=== PATIENT | male | born 2000 | race Two or more races ===

== ENCOUNTER 2018-05-07 15:27 | Emergency (ER) | payer OTHER ==
[~2018-05-07] VITALS: Ht 170.2 cm; Wt 56.7 kg
[2018-05-07] MEDS ORDERED: IV NORMAL SALINE 1000ML BAG 1,000 ML IV SCH (16:24)
[2018-05-07] MEDS ORDERED: IV NORMAL SALINE 500ML BAG 500 ML IV PRN (16:30)
[2018-05-07] MEDS ORDERED: ACETAMINOPHEN 500 MG TABLET PO ONE (16:30)
[2018-05-07 16:43] LABS: BILIRUBIN,URINE NEGATIVE (NEG); CLARITY,URINE CLEAR; COLOR,URINE YELLOW; NITRITE,URINE NEGATIVE (NEG); PH,URINE 5.5; PROTEIN,URINE NEGATIVE (NEG-TRACE)
[2018-05-07 16:58] LABS: BACTERIA,URINE 0 /HPF (0-FEW); RBC,URINE 0 /HPF (0-2); WBC,URINE 0 /HPF (0-4)
[2018-05-07 17:08] LABS: BASO % 0 % (0-3); EOS % 0 % (0-3); HEMATOCRIT 45.8 % (39.0-53.0); HEMOGLOBIN 15.7 g/dL (13.0-17.5); LYMPH # 0.4 x10^3/uL (1.0-4.8); LYMPH % 4 % (24-48); MEAN CORPUSCULAR HEMOGLOBIN 28 pg (25-35); MEAN CORPUSCULAR HGB CONC 34 g/dL (31-37); MEAN CORPUSCULAR VOLUME 81 fL (79-100); MONO # 0.8 x10^3/uL (0.0-1.1); MONO % 8 % (0-9); NEUT # 7.9 x10^3uL (1.8-7.7); NEUT % 87 % (31-73); PLATELET COUNT 200 x10^3/uL (140-400); RED BLOOD COUNT 5.63 x10^6/uL (4.30-5.70); RED CELL DISTRIBUTION WIDTH 13.2 % (11.5-14.5); WHITE BLOOD COUNT 9.1 x10^3/uL (4.0-11.0)
--- NOTE | 2018-05-07 17:11 | RAD ---
CHEST AP ONLY History: PATIENT WOKE UP WITH UPSET STOMACH AND FEVER, history of smoking. Comparison: None. Findings: Single view of the chest is submitted. There is no infiltrate, pneumothorax, or effusion. The pericardial cardiac silhouette is within normal limits in size. Impression: 1. There is no radiographic evidence of acute cardiopulmonary disease. Electronically signed by: Aleksandr De Guzman MD (05/07/2018 5:08 PM) [id number]
[2018-05-07 17:18] LABS: PROTHROMBIN TIME PATIENT 12.9 SEC (11.7-14.0)
[2018-05-07 17:20] LABS: CALCIUM 9.4 mg/dL (8.5-10.1); CREATININE 1.3 mg/dL (0.7-1.3); GFR 70.4; POTASSIUM 3.8 mmol/L (3.5-5.1)
[2018-05-07 17:26] LABS: INFLUENZA A PATIENT NEGATIVE (NEGATIVE); INFLUENZA B PATIENT NEGATIVE (NEGATIVE)
[2018-05-07 17:38] LABS: ALBUMIN 4.4 g/dL (3.4-5.0); ALBUMIN/GLOBULIN RATIO 1.3 (1.0-1.7); TOTAL BILIRUBIN 1.1 mg/dL (0.2-1.0); TOTAL PROTEIN 7.9 g/dL (6.4-8.2)
--- NOTE | 2018-05-07 18:03 | RAD ---
CT scan of the head without contrast 05/07/2018 Clinical History: Generalized pain. Fever. Technique: Unenhanced, contiguous, 5 mm axial sections were obtained through the head. One or more of the following individualized dose reduction techniques were utilized for this study: 1. Automated exposure control. 2. Adjustment of the mA and/or kV according to patient size. 3. Use of iterative reconstruction technique. Findings: The ventricles and sulci are within normal limits in size and configuration. No focal area of abnormal attenuation is seen involving the brain parenchyma. No extra-axial fluid collection is seen. No skull fracture is seen. Impression: Negative study. Electronically signed by: Gorge Zacarias MD (05/07/2018 6:00 PM) [facility]
--- NOTE | 2018-05-07 18:25 | PHYS DOC ---
Past Medical History Past Medical History: No Pertinent History Past Surgical History: Other Additional Past Surgical Histo: RLE fracture Alcohol Use: None Drug Use: None Adult General Chief Complaint Chief Complaint: GENERALIZED BODY ACHES HPI HPI Patient is a 18 year old male who presents with subjective fevers, body aches, nausea, and a slight posterior headache that began this morning at 7 AM. Patient denies any vomiting or diarrhea. Denies this being the worst headache in his life. Denies any neck pain or nuchal rigidity. He states he traveled from [facility] 2 months ago. Denies any coughing or congestion. Review of Systems Review of Systems Constitutional: Reports subjective fevers and body aches Eyes: Denies change in visual acuity, redness, or eye pain [] HENT: Denies nasal congestion or sore throat [] Respiratory: Denies cough or shortness of breath [] Cardiovascular: No additional information not addressed in HPI [] GI: Denies abdominal pain, nausea, vomiting, bloody stools or diarrhea [] : Denies dysuria or hematuria [] Musculoskeletal: Denies back pain or joint pain [] Integument: Denies rash or skin lesions [] Neurologic: Reports slight posterior headache, denies focal weakness or sensory changes [] All other systems were reviewed and found to be within normal limits, except as documented in this note. Current Medications Current Medications Current Medications Medications (Trade) Dose Ordered Sig/Joe Start Time Stop Time Status Last Admin Dose Admin Acetaminophen (Tylenol) 1,000 mg 1X ONCE 05/07/18 16:30 05/07/18 16:32 DC 05/07/18 17:06 1,000 MG Ceftriaxone Sodium 50 ml @ 100 mls/hr 1X ONCE 05/07/18 18:15 05/07/18 18:44 DC 05/07/18 18:43 100 MLS/HR Ibuprofen (Motrin) 800 mg 1X ONCE 05/07/18 18:30 05/07/18 18:31 DC 05/07/18 18:43 800 MG Sodium Chloride 500 ml @ 1,000 mls/hr PRN Q30MIN PRN 05/07/18 16:30 05/07/18 19:34 DC 05/07/18 17:08 1,000 MLS/HR Allergies Allergies Allergies Coded Allergies Type Severity Reaction Last Updated Verified No Known Drug Allergies 05/07/18 No Physical Exam Physical Exam Constitutional: Well developed, well nourished, no acute distress, non-toxic appearance. [] HENT: Normocephalic, atraumatic, bilateral external ears normal, oropharynx moist, no oral exudates, nose normal. [] Eyes: PERRLA, EOMI, conjunctiva normal, no discharge. [] Neck: Normal range of motion, no tenderness, supple, no stridor. No meningeal signs Cardiovascular:Heart rate regular rhythm, no murmur [] Lungs & Thorax: Bilateral breath sounds clear to auscultation [] Abdomen: Bowel sounds normal, soft, no tenderness, no masses, no pulsatile masses. [] Skin: Warm, dry, no erythema, no rash. [] Back: No tenderness, no CVA tenderness. [] Extremities: No tenderness, no cyanosis, no clubbing, ROM intact, no edema. [] Neurologic: Alert and oriented X 3, normal motor function, normal sensory function, no focal deficits noted. Cranial nerves II through XII intact Psychologic: Affect normal, judgement normal, mood normal. [] Current Patient Data Vital Signs Vital Signs Date Time Temp Pulse Resp B/P (MAP) Pulse Ox O2 Delivery O2 Flow Rate FiO2 05/07/18 19:05 96 18 126/60 (82) 99 05/07/18 16:20 99.4 99.4 05/07/18 15:47 Room Air Lab Values Laboratory Tests Test 05/07/18 16:20 05/07/18 16:55 Urine Collection Type Unknown Urine Color Yellow Urine Clarity Clear Urine pH 5.5 Urine Specific [place] 1.025 Urine Protein Negative mg/dL (NEG-TRACE) Urine Glucose (UA) Negative mg/dL (NEG) Urine Ketones (Stick) Negative mg/dL (NEG) Urine Blood Negative (NEG) Urine Nitrite Negative (NEG) Urine Bilirubin Negative (NEG) Urine Urobilinogen Dipstick 1.0 mg/dL (0.2 mg/dL) Urine Leukocyte Esterase Negative (NEG) Urine RBC 0 /HPF (0-2) Urine WBC 0 /HPF (0-4) Urine Bacteria 0 /HPF (0-FEW) White Blood Count 9.1 x10^3/uL (4.0-11.0) Red Blood Count 5.63 x10^6/uL (4.30-5.70) Hemoglobin 15.7 g/dL (13.0-17.5) Hematocrit 45.8 % (39.0-53.0) Mean Corpuscular Volume 81 fL (79-100) Mean Corpuscular Hemoglobin 28 pg (25-35) Mean Corpuscular Hemoglobin Concent 34 g/dL (31-37) Red Cell Distribution Width 13.2 % (11.5-14.5) Platelet Count 200 x10^3/uL (140-400) Neutrophils (%) (Auto) 87 % (31-73) H Lymphocytes (%) (Auto) 4 % (24-48) L Monocytes (%) (Auto) 8 % (0-9) Eosinophils (%) (Auto) 0 % (0-3) Basophils (%) (Auto) 0 % (0-3) Neutrophils # (Auto) 7.9 x10^3uL (1.8-7.7) H Lymphocytes # (Auto) 0.4 x10^3/uL (1.0-4.8) L Monocytes # (Auto) 0.8 x10^3/uL (0.0-1.1) Eosinophils # (Auto) 0.0 x10^3/uL (0.0-0.7) Basophils # (Auto) 0.0 x10^3/uL (0.0-0.2) Segmented Neutrophils % 81 % (35-66) H Band Neutrophils % 2 % (0-9) Lymphocytes % 4 % (24-48) L Monocytes % 13 % (0-10) H Platelet Estimate Adequate (ADEQUATE) Prothrombin Time 12.9 SEC (11.7-14.0) Prothrombin Time INR 1.0 (0.8-1.1) PTT 34 SEC (24-38) Sodium Level 139 mmol/L (136-145) Potassium Level 3.8 mmol/L (3.5-5.1) Chloride Level 100 mmol/L (98-107) Carbon Dioxide Level 29 mmol/L (21-32) Anion Gap 10 (6-14) Blood Urea Nitrogen 19 mg/dL (8-26) Creatinine 1.3 mg/dL (0.7-1.3) Estimated GFR (Cockcroft-Gault) 70.4 BUN/Creatinine Ratio 15 (6-20) Glucose Level 102 mg/dL (70-99) H Lactic Acid Level 1.1 mmol/L (0.4-2.0) Calcium Level 9.4 mg/dL (8.5-10.1) Total Bilirubin 1.1 mg/dL (0.2-1.0) H Aspartate Amino Transferase (AST) 31 U/L (15-37) Alanine Aminotransferase (ALT) 19 U/L (16-63) Alkaline Phosphatase 65 U/L (46-116) Total Protein 7.9 g/dL (6.4-8.2) Albumin 4.4 g/dL (3.4-5.0) Albumin/Globulin Ratio 1.3 (1.0-1.7) Procalcitonin < 0.10 ng/mL (0.00-0.10) Influenza Type A Antigen Negative (NEGATIVE) Influenza Type B Antigen Negative (NEGATIVE) Group A Streptococcus Rapid Negative (NEGATIVE) Laboratory Tests 05/07/18 16:55 Laboratory Tests 05/07/18 16:55 Microbiology 05/07/18 Blood Culture - Preliminary, Resulted NO GROWTH AFTER 2 DAYS EKG EKG [] Radiology/Procedures Radiology/Procedures [] Course & Med Decision Making Course & Med Decision Making Pertinent Labs and Imaging studies reviewed. (See chart for details) This is a 18-year-old male patient who presents to the ED today with multiple complaints including generalized body aches, posterior headache, nausea, subjective fevers. Temperature on arrival to the ED is 99.7, heart rate 120s. Patient was started on the sepsis protocol. He does not have any meningeal signs on physical exam. His white count is normal, CMP with no acute findings, chest x-ray and CT of the head are negative for any acute findings. Patient's symptoms are likely viral. Will be discharged with Tylenol and Motrin as needed. Also given prescription for Zofran. Follow-up with PCP in one week. Dragon Disclaimer Dragon Disclaimer This electronic medical record was generated, in whole or in part, using a voice recognition dictation system. Departure Departure Impression: Primary Impression: Fever Additional Impressions: Viral illness Nausea Disposition: 01 HOME, SELF-CARE Condition: STABLE Referrals: NO PCP (PCP) follow up with your doctor in one week as needed Patient Instructions: Fever, Adult, [id number], Nausea and Vomiting, Easy-to- Read Additional Instructions: You were evaluated in the emergency room, we highly suspect you have a viral illness going on. Take the prescribed medications as ordered. Push fluids. Rest. Maintain good hand hygiene. Follow-up with your doctor in 1-2 weeks as needed. Come back to the emergency room at any point symptoms worsen. Scripts Dicyclomine Hcl (DICYCLOMINE HCL) 20 Mg Tablet 1 TAB PO TID, #30 TAB 1 Refill Prov: LAUREL HE APRN 05/07/18 Ibuprofen (IBUPROFEN) 600 Mg Tablet 600 MG PO PRN Q6HRS PRN for INFLAMMATION, #30 TAB Prov: LAUREL HE APRN 18 Acetaminophen (TYLENOL) 325 Mg Tablet 1-2 TAB PO QID, #60 TAB 2 Refills Prov: LAUREL HE APRN 05/07/18 Ondansetron (ZOFRAN ODT) 4 Mg Tab.rapdis 1 TAB SL Q8HRS, #15 TAB Prov: LAUREL HE APRN 05/07/18 Attending Signature Attending Signature I have reviewed the PA/STATEMENT CLERK's note and plan of care. I was available for consultation as needed during the patient's visit in the emergency department. I agree with the clinical impression, plan, and disposition. Problem Qualifiers Primary Impression: Fever Fever type: unspecified Qualified Codes: R50.9 - Fever, unspecified LAUREL HE APRN May 07, 2018 18:25 NOA SANTOS DO May 10, 2018 07:15
[2018-05-07] MEDS ORDERED: IBUPROFEN 800 MG TABLET. PO ONE (18:30)
[2018-05-07 19:05] VITALS: BP 126/60
[2018-05-07] MEDS ORDERED: ONDA4TAB10 SL (19:19)
[2018-05-07] MEDS ORDERED: ACET325T9 PO (19:19)
[2018-05-07] MEDS ORDERED: IBUP-1007 PO (19:19)
[2018-05-07] MEDS ORDERED: DICY20TA3 PO (19:19)
[2018-05-07 19:23] LABS: % BANDS 2 % (0-9); % LYMPHS 4 % (24-48); % MONOS 13 % (0-10); % SEGS 81 % (35-66)
[2018-05-07 19:24] LABS: PLT ESTIMATE ADEQUATE (ADEQUATE)
== END 2018-05-07 19:30 | disposition home or self-care (01) ==
LOC: ER 15:27
DX: B34.9 Viral infection, unspecified (principal)
CPT/HCPCS: 36415; 70450; 71045; 80053; 81001; 83605; 84145; 85007; 85025; 85610; 85730; 87040; 87070; 87804; 87880; 96365; 99285; J0690; J7030; J7040

== ENCOUNTER 2018-09-13 14:22 | Emergency (ER) | payer OTHER ==
[~2018-09-13] VITALS: Ht 182.9 cm; Wt 63.5 kg
[~2018-09-13 14:22] MED LIST: ACET325T9 PO; DICY20TA3 PO; IBUP-1007 PO; ONDA4TAB10 SL
[2018-09-13 14:45] VITALS: BP 128/64
[2018-09-13] MEDS ORDERED: AZIT250T PO (14:55)
--- NOTE | 2018-09-13 14:55 | PHYS DOC ---
Past Medical History Past Medical History: No Pertinent History Past Surgical History: No Surgical History Additional Past Surgical Histo: RLE fracture Alcohol Use: None Drug Use: None Adult General Chief Complaint Chief Complaint: SORE THROAT HPI HPI Patient is a 18-year-old male who presents with complaint of sore throat for the last 3 days. Patient is not sure whether or not he has been running a fever. He denies any cough, chest pain or shortness of breath. Review of Systems Review of Systems Constitutional: Denies fever or chills [] HENT: Complains of sore throat [] Respiratory: Denies cough or shortness of breath [] Cardiovascular: No additional information not addressed in HPI [] Allergies Allergies Allergies Coded Allergies Type Severity Reaction Last Updated Verified No Known Drug Allergies 05/07/18 No Physical Exam Physical Exam Constitutional: Well developed, well nourished, no acute distress, non-toxic appearance. [] HENT: Normocephalic, atraumatic, there is pharyngeal erythema without exudates. [] Neck: Normal range of motion, no tenderness, supple, no stridor. [] Cardiovascular: Regular rate and rhythm [] Lungs & Thorax: Bilateral breath sounds clear to auscultation [] Current Patient Data Vital Signs Vital Signs Date Time Temp Pulse Resp B/P (MAP) Pulse Ox O2 Delivery O2 Flow Rate FiO2 09/13/18 14:45 98.5 85 16 128/64 (85) 99 Room Air 98.5 EKG EKG [] Radiology/Procedures Radiology/Procedures [] Course & Med Decision Making Course & Med Decision Making Pertinent Labs and Imaging studies reviewed. (See chart for details) [] Dragon Disclaimer Dragon Disclaimer This electronic medical record was generated, in whole or in part, using a voice recognition dictation system. Departure Departure Impression: Primary Impression: Pharyngitis Disposition: 01 HOME, SELF-CARE Condition: STABLE Referrals: NO PCP (PCP) Patient Instructions: Viral Pharyngitis Scripts Azithromycin (ZITHROMAX) 250 Mg Tablet 1 PKG PO UD, #6 TAB Prov: SHANTAL MILLS Jr. DO 09/13/18 Problem Qualifiers Primary Impression: Pharyngitis Pharyngitis/tonsillitis etiology: unspecified etiology Qualified Codes: J02.9 - Acute pharyngitis, unspecified SHANTAL MILLS Jr. DO Sep 13, 2018 14:55
== END 2018-09-13 15:12 | disposition home or self-care (01) ==
LOC: ER 14:22
DX: J02.9 Acute pharyngitis, unspecified (principal); R50.9 Fever, unspecified
CPT/HCPCS: 99283

== ENCOUNTER 2018-11-04 09:11 | Emergency (ER) | payer OTHER ==
[~2018-11-04] VITALS: Ht 175.3 cm; Wt 63.5 kg
[~2018-11-04 09:11] MED LIST changes: +AZIT250T PO
[2018-11-04 09:57] VITALS: BP 121/86
[2018-11-04] MEDS ORDERED: AMOX875T PO (10:12)
[2018-11-04] MEDS ORDERED: VENTOLIN HFA18 GM INH (10:12)
[2018-11-04] MEDS ORDERED: BENZ100C PO (10:12)
[2018-11-04] MEDS ORDERED: PRED50TA PO (10:12)
--- NOTE | 2018-11-04 10:12 | PHYS DOC ---
Past Medical History Past Medical History: No Pertinent History (LAUREL HE APRN) Past Surgical History: No Surgical History Additional Past Surgical Histo: RLE fracture (LAUREL HE APRN) Alcohol Use: None Drug Use: None (LAUREL HE APRN) Adult General Chief Complaint Chief Complaint: COUGH HPI HPI Patient is a 18 year old male with no significant medical history who presents to the ED today complaining of a productive cough, nasal congestion, sore throat , bilateral ear pain rated at 5 out of 10 worse on the right side, symptoms began 2 days ago. Patient denies any fever. He states is a former smoker. He states most of the symptoms especially the ear pain is worse when he coughs. (LAUREL HE APRN) Review of Systems Review of Systems Constitutional: Denies fever or chills [] Eyes: Denies change in visual acuity, redness, or eye pain [] HENT: Reports nasal congestion, bilateral ear pain, sore throat [] Respiratory: Reports cough, denies shortness of breath [] Cardiovascular: No additional information not addressed in HPI [] GI: Denies abdominal pain, nausea, vomiting, bloody stools or diarrhea [] : Denies dysuria or hematuria [] Musculoskeletal: Denies back pain or joint pain [] Integument: Denies rash or skin lesions [] Neurologic: Denies headache, focal weakness or sensory changes [] All other systems were reviewed and found to be within normal limits, except as documented in this note. (LAUREL HE APRN) Allergies Allergies Allergies Coded Allergies Type Severity Reaction Last Updated Verified No Known Drug Allergies 05/07/18 No (SUMMER YEN MD) Physical Exam Physical Exam Constitutional: Well developed, well nourished, no acute distress, non-toxic appearance. [] HENT: Normocephalic, atraumatic, bilateral external ears normal, oropharynx moist, no oral exudates, nose normal. [] Right TM is mildly injected with mild amount of cloudy fluid. Left TM has slight injection. Eyes: PERRLA, EOMI, conjunctiva normal, no discharge. [] Neck: Normal range of motion, no tenderness, supple, no stridor. [] Cardiovascular:Heart rate regular rhythm, no murmur [] Lungs & Thorax: Bilateral breath sounds clear to auscultation [] Abdomen: Bowel sounds normal, soft, no tenderness, no masses, no pulsatile masses. [] Skin: Warm, dry, no erythema, no rash. [] Back: No tenderness, no CVA tenderness. [] Extremities: No tenderness, no cyanosis, no clubbing, ROM intact, no edema. [] Neurologic: Alert and oriented X 3, normal motor function, normal sensory function, no focal deficits noted. [] Psychologic: Affect normal, judgement normal, mood normal. [] (LAUREL HE APRN) Current Patient Data Vital Signs Vital Signs Date Time Temp Pulse Resp B/P (MAP) Pulse Ox O2 Delivery O2 Flow Rate FiO2 11/04/18 09:57 97.7 81 18 121/86 (98) 97 Room Air 97.7 (SUMMER YEN MD) EKG EKG [] (LAUREL HE APRN) Radiology/Procedures Radiology/Procedures [] (LAUREL HE APRN) Course & Med Decision Making Course & Med Decision Making Pertinent Labs and Imaging studies reviewed. (See chart for details) This is a 18-year-old male patient with otitis media, pharyngitis, and URI. He was discharged with amoxicillin, albuterol inhaler, prednisone and Tessalon Perles. Saltwater gargles encouraged. Follow-up with primary care doctor in 1-2 weeks, Tylenol/ Motrin for pain or fever. (LAUREL HE APRN) Course & Med Decision Making Staff Physician Addendum: I was working in the ER during the course of this patient's visit. I was available for consultation as needed, but I was not directly involved in the care of this patient. (SUMMER YEN MD) Dragon Disclaimer Dragon Disclaimer This electronic medical record was generated, in whole or in part, using a voice recognition dictation system. (LAUREL HE APRN) Departure Departure Impression: Primary Impression: Upper respiratory infection Additional Impressions: Otitis media Pharyngitis, acute Cough Disposition: 01 HOME, SELF-CARE Condition: STABLE Referrals: NO PCP (PCP) Follow-up in 1-2 weeks Patient Instructions: Cough, Adult, [id number], Otitis Media, Adult, Upper Respiratory Infection, Adult, [id number], Viral and Bacterial Pharyngitis, [id number] Additional Instructions: You have ear an infection, throat and upper respiratory infection. Take the prescribed medications as ordered. Use saltwater gargles as needed. Take Tylenol Motrin for pain or fever. Follow-up with your doctor in 1-2 weeks. Scripts Albuterol Sulfate (VENTOLIN HFA INHALER) 18 Gm Hfa.aer.ad 2 PUFF INH Q4HRS for FOR ASTHMA, #1 INHALER 0 Refills Prov: LAUREL HE APRN 11/04/18 Benzonatate (TESSALON PERLE) 100 Mg Capsule 1 CAP PO TID, #30 CAP Prov: LAUREL HE APRN 11/04/18 Prednisone (PREDNISONE) 50 Mg Tablet 1 TAB PO DAILY, #5 TAB Prov: LAUREL HE APRN 11/04/18 Amoxicillin (AMOXICILLIN) 875 Mg Tablet 1 TAB PO BID, #20 TAB Prov: LAUREL HE APRN 11/04/18 Problem Qualifiers Primary Impression: Upper respiratory infection URI type: unspecified URI Qualified Codes: J06.9 - Acute upper respiratory infection, unspecified Additional Impressions: Otitis media Otitis media type: other nonsuppurative Chronicity: acute Laterality: bilateral Recurrence: non-recurrent Qualified Codes: H65.193 - Other acute nonsuppurative otitis media, bilateral Pharyngitis, acute Pharyngitis/tonsillitis etiology: unspecified etiology Qualified Codes: J02.9 - Acute pharyngitis, unspecified LAUREL HE APRN Nov 04, 2018 10:12 SUMMER YEN MD Nov 04, 2018 17:12
== END 2018-11-04 10:19 | disposition home or self-care (01) ==
LOC: ER 09:11
DX: J06.9 Acute upper respiratory infection, unspecified (principal); H66.93 Otitis media, unspecified, bilateral; J02.9 Acute pharyngitis, unspecified; Z87.891 Personal history of nicotine dependence
CPT/HCPCS: 99283